=== PATIENT | female | born 1985 | race Caucasian/White ===

== ENCOUNTER 2016-11-16 14:38 | Emergency (ER) | payer BC, OTHER ==
[~2016-11-16] VITALS: Ht 172.7 cm; Wt 70.0 kg
[2016-11-16 15:16] VITALS: BP 123/64; PULSE 61; RESP 16; TEMP 99.4; O2SAT 99
[2016-11-16 15:47] LABS: AUTOMATED NEUTROPHIL # 6.8 TH/MM3 (1.8-7.7); BASOPHIL % 0.3 % (0.0-2.0); EOSINOPHIL # 0.1 TH/MM3 (0-0.4); EOSINOPHIL % 1.3 % (0.0-4.0); HEMATOCRIT 33.9 % (35.0-46.0); HEMO FLAGS DIFF FINAL; LYMPH % 23.2 % (9.0-44.0); LYMPHOCYTE # 2.3 TH/MM3 (1.0-4.8); MEAN CELL VOLUME 90.8 FL (80.0-100.0); MEAN CORPUSCULAR HEMOGLOBIN 32.3 PG (27.0-34.0); MEAN CORPUSCULAR HGB CONC 35.6 % (32.0-36.0); MONO % 5.2 % (0.0-8.0); PLATELET COUNT 201 TH/MM3 (150-450); RED BLOOD COUNT 3.73 MIL/MM3 (4.00-5.30); RED CELL DISTRIBUTION WIDTH 12.7 % (11.6-17.2); WHITE BLOOD COUNT 9.7 TH/MM3 (4.0-11.0)
[2016-11-16 16:10] LABS: BICARBONATE 23.1 MEQ/L (21.0-32.0); MAGNESIUM 1.8 MG/DL (1.5-2.5); POTASSIUM 3.6 MEQ/L (3.5-5.1)
--- NOTE | 2016-11-16 16:12 | PD ---
HPI Chief Complaint: Syncope/Near-Syncope Time Seen by Provider: 15:21 Travel History International Travel<30 days: No Contact w/Intl Traveler<30days: No Traveled to known affect area: No History of Present Illness HPI Patient is a 31-year-old female approximately 15 weeks here with complaint of syncope. [place] became overheated, lightheaded dizzy, nauseous and had a presyncopal episode approximately 20 seconds or less. No chest pain shortness of breath or palpitations. No abdominal pain, vaginal bleeding or leakage of fluid. She did have a single episode of nausea in route but now resolved. PFSH Past Medical History Diminished Hearing: No Gastrointestinal Disorders: Yes (COLITIS ) Medical other: Yes (MULTIPLE SCLEROSIS ) Immunizations Current: No Tetanus Vaccination: Unknown Influenza Vaccination: No ?: LMP: 07/06/2016 : 1 Para: 0 Miscarriage: 0 : 0 Past Surgical History Surgical History: No Previous Surgery Social History Alcohol Use: No Tobacco Use: No Substance Use: No Review of Systems Except as stated in HPI: all other systems reviewed are Neg Physical Exam Narrative GENERAL: Well-appearing female in no acute distress SKIN: Focused skin assessment warm/dry. HEAD: Normocephalic. EYES: No scleral icterus. No injection or drainage. ENT: Mucous membranes pink and moist. NECK: Supple CARDIOVASCULAR: Regular rate and rhythm. No murmur appreciated. RESPIRATORY: No accessory muscle use. Clear to auscultation. Breath sounds equal bilaterally. GASTROINTESTINAL: Abdomen soft, non-tender, nondistended. MUSCULOSKELETAL: Normal gait NEUROLOGICAL: Awake and alert. No obvious cranial nerve deficits. Motor grossly within normal limits. Normal speech. PSYCHIATRIC: Appropriate mood and affect; insight and judgment normal. Data Data Last Documented VS Vital Signs Date Time Temp Pulse Resp B/P Pulse Ox O2 Delivery O2 Flow Rate FiO2 11/16/16 15:16 99.4 61 16 123/64 99 Orders Electrocardiogram (11/16/16 15:06) Basic Metabolic Panel (Bmp) (11/16/16 15:06) Complete Blood Count With Diff (11/16/16 15:06) Magnesium (Mg) (11/16/16 15:06) Ecg Monitoring (11/16/16 15:06) Iv Access Insert/Monitor (11/16/16 15:06) Oximetry (11/16/16 15:06) Labs Laboratory Tests Test 11/16/16 15:30 White Blood Count 9.7 TH/MM3 Red Blood Count 3.73 MIL/MM3 Hemoglobin 12.0 GM/DL Hematocrit 33.9 % Mean Corpuscular Volume 90.8 FL Mean Corpuscular Hemoglobin 32.3 PG Mean Corpuscular Hemoglobin 35.6 % Concent Red Cell Distribution Width 12.7 % Platelet Count 201 TH/MM3 Mean Platelet Volume 8.5 FL Neutrophils (%) (Auto) 70.0 % Lymphocytes (%) (Auto) 23.2 % Monocytes (%) (Auto) 5.2 % Eosinophils (%) (Auto) 1.3 % Basophils (%) (Auto) 0.3 % Neutrophils # (Auto) 6.8 TH/MM3 Lymphocytes # (Auto) 2.3 TH/MM3 Monocytes # (Auto) 0.5 TH/MM3 Eosinophils # (Auto) 0.1 TH/MM3 Basophils # (Auto) 0.0 TH/MM3 CBC Comment DIFF FINAL Differential Comment MDM Medical Decision Making Medical Screen Exam Complete: Yes Emergency Medical Condition: Yes Medical Record Reviewed: Yes Differential Diagnosis 31-year-old female here with complaint of presyncopal episode. Differential includes dehydration, electrolyte abnormality, symptomatic anemia, arrhythmia, vasovagal spell. Patient is incidentally but no vaginal bleeding or pain. Narrative Course Patient placed on monitor, IV established and blood obtained. Twelve-lead EKG shows sinus rhythm without notable ST or T-wave abnormalities and normal intervals. CBC, BMP, magnesium unremarkable. Patient able to ambulate asymptomatically will be discharged home. Diagnosis Primary Impression: Vasovagal syncope Referrals: Primary Care Physician as needed Patient Instructions: General Instructions, Syncope (ED) Additional Instructions: Drink plenty of fluids. Med/Other Pt SpecificInfo: No Change to Meds Disposition: 01 DISCHARGE HOME Condition: Stable Nasima Flores MD Nov 16, 2016 16:12
[2016-11-16 16:45] VITALS: BP_SYST 115; PULSE 76; RESP 18; O2SAT 100
[2016-11-16 16:49] VITALS: BP 115/57
--- NOTE | 2016-11-17 14:29 | EKG ---
Date Performed: 11/16/2016 Time Performed: 15:16:09 PTAGE: 31 years EKG: Sinus rhythm POSSIBLE RIGHT VENTRICULAR CONDUCTION DELAY BORDERLINE ECG NO PREVIOUS TRACING DOCTOR: Rafael Finn Interpretating Date/Time 11/17/2016 14:24:44
== END 2016-11-16 16:51 | disposition home or self-care (01) ==
LOC: NEPD 14:38
DX: O26.892 Other specified pregnancy related conditions, second trimester (principal); R55 Syncope and collapse; R42 Dizziness and giddiness; R11.0 Nausea; R94.31 Abnormal electrocardiogram [ECG] [EKG]; G35 Multiple sclerosis; Z87.19 Personal history of other diseases of the digestive system; Z3A.15 15 weeks gestation of pregnancy
CPT/HCPCS: 80048; 83735; 85025; 93005